=== PATIENT | female | born 1965 | race Two or more races ===

== ENCOUNTER 2018-11-04 19:45 | Emergency (ER) | payer SELFPAY ==
[~2018-11-04] VITALS: Ht 160 cm; Wt 74.8 kg
[2018-11-04 19:50] VITALS: BP 136/89
--- NOTE | 2018-11-04 21:17 | NUR ---
PT ELOPED WITHOUT BEING SEEN BY MD.
== END 2018-11-04 23:00 | disposition left against medical advice (07) ==
LOC: ER 19:46
DX: Z53.21 Procedure and treatment not carried out due to patient leaving prior to being seen by health care provider (principal); R51 Headache; J45.909 Unspecified asthma, uncomplicated; Z98.890 Other specified postprocedural states; Z90.89 Acquired absence of other organs

== ENCOUNTER 2021-04-12 17:10 | Emergency (ER) | payer MEDICAID ==
[~2021-04-12] VITALS: Ht 160 cm; Wt 68.0 kg
--- NOTE | 2021-04-12 17:10 | NUR ---
PT BIB SELF C/O PAINFUL AND BLOODY URINATION STARTED FRIDAY. PT IS AAOX4, NOT IN RESPIRATORY DISTRESS, V/S STABLE, KEPT RESTED AND COMFORTABLE. WILL CONTINUE TO MONITOR.
--- NOTE | 2021-04-12 17:34 | NUR ---
URINE SPECIMEN COLLECTED AND SENT TO LAB.
--- NOTE | 2021-04-12 17:37 | NUR ---
PT SEEN AND EXAMINED BY .
[2021-04-12 17:51] LABS: BILIRUBIN,URINE SMALL (NEGATIVE); COLOR,URINE BROWN (YELLOW); LEUKOCYTE ESTERASE ,URINE Small (NEGATIVE); NITRITE, URINE Negative (NEGATIVE); PH,URINE 5.5 (5.0-8.0); PROTEIN,URINE 100 mg/dl (NEGATIVE); UGLUCOSE Negative (NEGATIVE); UROBILINOGEN,URINE 0.2 EU/dL (0.2)
[2021-04-12 18:04] LABS: BACTERIA,URINE 1+ /HPF (None Seen); RBC,URINE 51-80 /HPF (0-2); SQUAMOUS EPITHELIAL CELL,UR Few /HPF (None Seen)
[2021-04-12] MEDS ORDERED: CEFTRIAXONE 1GM BAG (ER ONLY) 50 ML IV ONE (18:41)
[2021-04-12] MEDS ORDERED: CEFTRIAXONE 1GM BAG (ER ONLY) 1 GM/50 ML PIGGYBACK IV ONE (19:00)
[2021-04-12 19:11] LABS: BASOPHILS # (AUTO) 0.1 K/uL (0.0-0.2); BASOPHILS % (AUTO) 1.3 % (0.0-2.0); EOSINOPHILS % (AUTO) 3.1 % (0.0-6.0); HEMATOCRIT 42 % (33-45); HEMOGLOBIN 14.5 g/dL (11.5-14.8); LYMPHOCYTES # (AUTO) 1.7 K/uL (0.8-4.8); LYMPHOCYTES % (AUTO) 17.8 % (20.0-44.0); MEAN CORPUSCULAR HGB CONC 34 g/dl (31.0-36.0); MEAN CORPUSCULAR VOLUME 91 fL (82-100); MONOCYTES # (AUTO) 0.7 K/uL (0.1-1.30); MONOCYTES % (AUTO) 7.2 % (2.0-12.0); NEUTROPHILS # (AUTO) 6.6 K/uL (1.8-8.9); NEUTROPHILS % (AUTO) 70.6 % (43.0-81.0); PLATELET COUNT (AUTO) 333 K/uL (150-450); RED BLOOD CELL COUNT(AUTO) 4.67 MIL/uL (4.0-5.2); WHITE BLOOD COUNT (AUTO) 9.4 K/uL (4.3-11.0)
[2021-04-12 19:25] LABS: ALBUMIN 4.1 g/dL (3.4-5.0); BILIRUBIN,DIRECT 0.1 mg/dL (0.0-0.2); BILIRUBIN,TOTAL 0.5 mg/dL (0.2-1.0); CALCIUM, SERUM 9.3 mg/dL (8.5-10.1); CREATININE 0.8 mg/dL (0.6-1.3); POTASSIUM 3.7 mmol/L (3.5-5.1); TOTAL PROTEIN, SERUM 9.1 g/dL (6.4-8.2)
[2021-04-12] MEDS ORDERED: CEFD300C3 PO (20:20)
[2021-04-12] MEDS ORDERED: PHEN-704 PO (20:20)
[2021-04-12 21:02] VITALS: BP 130/80
--- NOTE | 2021-04-12 21:02 | NUR ---
Patient discharged to home in stable condition. Written and verbal after care instructions given. Patient verbalizes understanding of instruction. RX given
== END 2021-04-12 21:02 | disposition home or self-care (01) ==
LOC: ER 17:18
DX: N39.0 Urinary tract infection, site not specified (principal); R10.9 Unspecified abdominal pain; J45.909 Unspecified asthma, uncomplicated; Z41.1 Encounter for cosmetic surgery; Z90.89 Acquired absence of other organs; Z79.899 Other long term (current) drug therapy
CPT/HCPCS: 36415; 74176; 80048; 80076; 81001; 84703; 85025; 87077; 87086; 87186; 96365; 99284; J0696

== ENCOUNTER 2022-01-21 12:28 | Emergency (ER) | payer MEDICAID ==
[~2022-01-21] VITALS: Ht 160 cm; Wt 64.9 kg
[~2022-01-21 12:28] MED LIST: CEFD300C3 PO; PHEN-704 PO
[2022-01-21 12:36] VITALS: BP 134/80
--- NOTE | 2022-01-21 12:36 | NUR ---
BP ELEVATED X 3 DAYS, 139/92 THIS MORNING
--- NOTE | 2022-01-21 13:05 | NUR ---
Patient discharged to home in stable condition. Written and verbal after care instructions given. Patient verbalizes understanding of instruction.
== END 2022-01-21 13:07 | disposition home or self-care (01) ==
LOC: ER 12:34
DX: F43.9 Reaction to severe stress, unspecified (principal); J45.909 Unspecified asthma, uncomplicated; Z98.86 Personal history of breast implant removal; Z79.899 Other long term (current) drug therapy